=== PATIENT | female | born 1960 ===

== ENCOUNTER 2025-03-22 01:07 | Outpatient (CLI) | payer BC, SELFPAY ==
--- NOTE | 2025-03-22 | DI.US_ITS ---
APPROVED REPORT Exam: Exercise Treadmill Patient Location: Out-Patient Room/Bed: Stress Nurse: Leisa Armendariz RN Ordering Provider:ALFONZO SPRAGUE, Contact Number: [phone] BMI: 40.18 Baseline Rhythm: Sinus Rhythm Indications: fatigue Medical History Medical History: hx of stent 2018, CAD, CHAUNCEY, HLD, GERD, AYALA, HTN, former smoker, breast ca, lower extremity edema, seasonal allergies, fatigue, fibromyalgia, PAD, carotid stenosis, pre-diabetes, depression, claudication Cardiac Medications: nitroglycerin, atorvastatin, losartan, atenolol, metformin, sertraline, meloxicam, plavix, HCTZ, pantoprazole, advair, mounjaro Allergies: wellbutrin, prevacid, ozempic, tetanus Cardiac Risk Factors: family hx, prediabetes, HTN, HLD, PVD, previous smoker, obesity Previous Cardiac Procedures: stent x1 in 2018 Pretest Chest Pain Characteristics: No chest pain Exercise History: Sedentary Physical Disabilities: Legs Lung Sounds: Clear to auscultation Heart Sounds: Regular Stress Test Details Test: Exercise stress testing was performed using a Hemal protocol. Rest Stress HR Resting HR Supine: 97 bpm Max Heart Rate (APMHR): 156 bpm Resting HR Standin bpm Target HR (85% APMHR): 133 bpm Max HR Achieved: 140 bpm % of APMHR: 90 Recovery HR: 102 bpm HR response to stress: Normal HR response to stress BP Resting BP Supine: 142/60 mmHg Resting BP Standin/70 mmHg Max BP: 160/70 mmHg Recovery BP: 138/50 mmHg BP response to stress: Normal blood pressure response to stress. ECG Resting ECG: Sinus Rhythm Ectopy: none Stress ECG: Sinus Tachycardia ST Change: No significant ST segment changes noted Arrhythmia: None Recovery ECG: Sinus Tachycardia Recovery ST Change: No significant ST segment changes noted Recovery Arrhythmia: frequent PVCs; trigeminy, couplet Clinical Reason for Termination: Target HR Achieved Stress Symptoms: Leg Fatigue, Dyspnea Exercise duration: 03 min58 sec Highest Stage Reached: Stage 2: 2.5 mph at 12% grade. Exercise capacity: 5.82 METs Angina Score: None Rate Pressure Product: [id number] Stress ECG Conclusion 1. Resting electrocardiogram showed low voltage 2. Patient exercised on the Hemal protocol for 4 minutes. This was a workload of 5.8 METS 3. Normal blood pressure response to exercise. Rapid increase in heart rate with activity suggest deconditioning. The patient achieved 90% of maximal predicted heart rate for age 4. There was no electrocardiographic evidence of myocardial ischemia 5. PVCs were noted 6. Resting left ventricular function was normal. EF was 60%. Postexercise EF lalita to greater than 70% with augmented contractility of all segments 7. There was no echocardiographic evidence of myocardial ischemia Stress Test Summary STAGE Time (mins) Speed (mph) Grade (%) HR BP SpO2 SYMPTOMS METS Supine 97 142/60 92 Standing 90 160/70 1 3 1.7 10 126 160/70 leg pain, moderate SOB 4.5 2 6 2.5 12 133 7 1 min recovery 103 134/42 93 3 min recovery 102 136/50 93 6 min recovery 102 138/50 95 symptoms resolved Pt stopped at target heart rate r/t b/l leg pain/claudication which is a chronic problem for the patient. All symptoms resolved by end of test, pt left ambulatory in no acute distress.
== END 2025-03-22 01:27 ==
PROVIDERS: PCP Nurse Practitioner Family; Visit Provider Internal Medicine Cardiovascular Disease
DX: R53.83 Other fatigue (principal)
CPT/HCPCS: 93350; 93017